=== PATIENT | female | born 1980 | race Caucasian/White ===

== ENCOUNTER 2020-02-12 06:32 | Day surgery (SDC) | payer BC ==
[~2020-02-12 06:32] MED LIST: Lactated Ringers 1,000 ML IV SCH; Lidocaine 1% 4 ML ONE; Lidocaine 1%/Sod Bicarbonate in NS 8.4% 1 ML Syringe IDERM PRN; Midazolam 1 MG/ML 2 ML SDV ONE; Propofol 200 MG/20 ML SDV ONE; Sodium Chloride 0.9% 10 ML Syringe FLUSH PRN; ceFAZolin 1 GM Vial ONE; fentaNYL 100 MCG/2 ML SDV ONE
[2020-02-12] MEDS ORDERED: Bupivacaine 0.25% 10 ML SDV ONE (06:37)
--- NOTE | 2020-02-12 06:49 | PCM.PREANE ---
Preanesthetic Assessment - Procedure Proposed Procedure: right elbow nodule excisiojn - Anesthesia/Transfusion/Family Hx Anesthesia History: Prior Anesthesia Without Reaction Family History of Anesthesia Reaction: No Transfusion History: No Prior Transfusion(s) - Review of Systems General: No Symptoms Pulmonary: No Symptoms Cardiovascular: No Symptoms Gastrointestinal: No Symptoms Neurological: No Symptoms Other: Reports: None - Physical Assessment NPO Status Date: 02/11/20 NPO Status Time: 22:00 Vital Signs: 124/84 85 98% 98.0 16 Height: 5 ft 6 in Weight: 88.4 kg ASA Class: 2 Mental Status: Alert & Oriented x3 Airway Class: Mallampati = 1 Dentition: Reports: Normal Dentition Thyro-Mental Finger Breadths: 3 Mouth Opening Finger Breadths: 3 ROM/Head Extension: Full Lungs: Clear to Auscultation, Normal Respiratory Effort Cardiovascular: Regular Rate, Regular Rhythm - Lab Values: Laboratory Last Values COVID-19 PCR Not detected (NOT DETECT) 02/09/20 11:00 MRSA (PCR) Negative 02/04/20 13:22 - Allergies Allergies/Adverse Reactions: Allergies Allergy/AdvReac Type Severity Reaction Status Date / Time Sulfa (Sulfonamide Allergy Cannot Verified 02/11/20 13:53 Antibiotics) Remember - Blood Blood Available: No - Acknowledgements Anesthesia Type Planned: General Anesthesia, MAC Pt an Appropriate Candidate for the Planned Anesthesia: Yes Alternatives and Risks of Anesthesia Discussed w Pt/Guardian: Yes Pt/Guardian Understands and Agrees with Anesthesia Plan: Yes PreAnesthesia Questionnaire HEENT History: Reports: Other (See Below) Other HEENT History: pharyngitis Cardiovascular History: Reports: None Respiratory History: Reports: None Gastrointestinal History: Reports: None Genitourinary History: Reports: None [employer] INS[employer]OR History: Reports: None Musculoskeletal History: Reports: RA, Other (See Below) Other Musculoskeletal History: rheumatoid nodule of elbow, left ankle bone spur removal around 11 years of age Neurological History: Reports: None Psychiatric History: Reports: None Endocrine/Metabolic History: Reports: None Hematologic History: Reports: None Immunologic History: Reports: None Oncologic (Cancer) History: Reports: None Dermatologic History: Reports: Other (See Below) Other Dermatologic History: skin disorder - Past Surgical History Head Surgeries/Procedures: Reports: None HEENT Surgical History: Reports: Cataract Surgery Cardiovascular Surgical History: Reports: None Respiratory Surgical History: Reports: None GI Surgical History: Reports: None Female Surgical History: Reports: None Male Surgical History: Reports: None Endocrine Surgical History: Reports: None Neurological Surgical History: Reports: None Musculoskeletal Surgical History: Reports: Carpal Tunnel Oncologic Surgical History: Reports: None Dermatological Surgical History: Reports: None - SUBSTANCE USE Smoking Status *Q: Never Smoker Recreational Drug Use History: No - HOME MEDS Home Medications: Home Meds Cholecalciferol (Vitamin D3) [Vitamin D3] 8,000 unit PO DAILY 02/12/19 [History] Loratadine [Claritin] 10 mg PO DAILY 02/11/20 [History] Naproxen [Naprosyn] 500 mg PO BID PRN 02/11/20 [History] Turmeric 1,200 mg PO DAILY 02/11/20 [History] - CURRENT (IN HOUSE) MEDS Current Meds: Current Medications Lactated Ringer's (Ringers, Lactated) 1,000 mls @ 125 mls/hr IV ASDIRECTED STAN Stop: 02/12/20 23:00 Lidocaine/Sodium Bicarbonate (Buffered Lidocaine 1% In Ns 8.4%) 0.25 ml IDERM ONETIME PRN PRN Reason: Prior to IV Start Stop: 02/12/20 23:00 Sodium Chloride (Saline Flush) 10 ml FLUSH ASDIRECTED PRN PRN Reason: Keep Vein Open Stop: 02/12/20 23:00 Discontinued Medications Bupivacaine HCl (Sensorcaine-Mpf 0.25%) Confirm Administered Dose 30 ml .ROUTE .STK-MED ONE Stop: 02/12/20 06:38 Cefazolin Sodium (Ancef) Confirm Administered Dose 2 gm .ROUTE .STK-MED ONE Stop: 02/12/20 06:21 Fentanyl (Sublimaze) Confirm Administered Dose 100 mcg .ROUTE .STK-MED ONE Stop: 02/12/20 06:21 Lidocaine HCl (Xylocaine-Mpf 1%) Confirm Administered Dose 4 mls @ as directed .ROUTE .STK-MED ONE Stop: 02/12/20 06:20 Midazolam HCl (Versed 1 Mg/Ml) Confirm Administered Dose 2 mg .ROUTE .STK-MED ONE Stop: 02/12/20 06:21 Propofol (Diprivan 20 Ml) Confirm Administered Dose 200 mg .ROUTE .STK-MED ONE Stop: 02/12/20 06:20
[2020-02-12] MEDS ORDERED: fentaNYL 100 MCG/2 ML SDV IVPUSH PRN (07:19)
[2020-02-12] MEDS ORDERED: HYDROmorphone 0.5 MG/0.5 ML Syringe IVPUSH PRN (07:19)
[2020-02-12] MEDS ORDERED: Ondansetron 4 MG/2 ML SDV IVPUSH PRN (07:19)
[2020-02-12] MEDS ORDERED: Ketorolac 30 MG/ML SDV ONE (07:29)
[2020-02-12] MEDS ORDERED: Ondansetron 4 MG/2 ML SDV ONE (07:29)
--- NOTE | 2020-02-12 07:53 | PCM.POSTAN ---
POST ANESTHESIA ASSESSMENT - MENTAL STATUS Mental Status: Alert, Oriented - VITAL SIGNS Vital Signs: Last Vital Signs Temp 98.0 F 02/12/20 06:35 Pulse 85 02/12/20 06:35 Resp 16 02/12/20 06:35 BP 124/84 02/12/20 06:35 Pulse Ox 98 02/12/20 06:35 0749 73 12 94% 97.8 117/73 - RESPIRATORY Respiratory Status: Respiratory Rate WNL, Airway Patent, O2 Saturation Stable, Supplemental Oxygen - CARDIOVASCULAR CV Status: Pulse Rate WNL, Blood Pressure Stable - GASTROINTESTINAL GI Status: No Symptoms - PAIN Pain Score: 0 - POST OP HYDRATION Hydration Status: Adequate & Stable
--- NOTE | 2020-02-12 09:54 | PCM48HPAN ---
Post Anesthesia Note - EVALUATION WITHIN 48HRS OF ANESTHETIC Vital Signs in Normal Range: Yes Patient Participated in Evaluation: Yes Respiratory Function Stable: Yes Airway Patent: Yes Cardiovascular Function Stable: Yes Hydration Status Stable: Yes Pain Control Satisfactory: Yes Nausea and Vomiting Control Satisfactory: Yes Mental Status Recovered: Yes Vital Signs: Last Vital Signs Temp 36.7 C 02/12/20 09:00 Pulse 61 02/12/20 09:00 Resp 16 02/12/20 09:00 BP 120/71 02/12/20 09:00 Pulse Ox 98 02/12/20 09:00
--- NOTE | 2020-02-12 10:04 | PCM.OPNOTE ---
- General Post-Op/Procedure Note Date of Surgery/Procedure: 02/12/20 Operative Procedure(s): excision of right elbow subcutaneous rheumtoid nodlues Pre Op Diagnosis: painful right elbow mass Post-Op Diagnosis: Same Anesthesia Technique: General LMA, Local Primary Surgeon: Rene Hubbard Anesthesia Provider: Maryam Kimball Trucking Manager: Jessica Cortes EBJuvencio in mLs: 5 Complications: None Condition: Good Free Text/Narrative:: Intake & Output 02/11/20 02/12/20 02/12/20 22:59 06:59 14:59 Intake Total 100 Balance 100
--- NOTE | 2020-02-18 09:08 | OR ---
DATE OF OPERATION: 02/12/2020 SURGEON: Rene Hubbard MD OPERATION PERFORMED: Excision of right elbow subcutaneous rheumatoid nodules. PREOPERATIVE DIAGNOSIS: Painful right elbow mass. POSTOPERATIVE DIAGNOSIS: Painful right elbow mass. ANESTHESIA: General LMA with local. ANESTHESIA PROVIDER: Maryam Kimball CRNA MULTIFOLD OPERATOR: Jessica Cortes LPN. ESTIMATED BLOOD LOSS: 5 mL. COMPLICATIONS: None. CONDITION: Stable. DESCRIPTION OF PROCEDURE: The patient was identified in the preoperative holding area. Proper site was marked and identified by surgeon. The patient was taken back to the operative theater, where after adequate anesthesia, the patient's right upper extremity had a nonsterile tourniquet applied and was sterilely prepped and draped in the usual sterile fashion. OR time-out was performed. The patient received 2 g of IV Ancef. At this time, right upper extremity was exsanguinated. Tourniquet was insufflated to 220 mmHg. Standard curvilinear incision was made over the olecranon and the olecranon bursa. This was taken down through the subcutaneous tissue. The subcutaneous rheumatoid nodules were then identified and all of them were resected. There was no more prominence of the rheumatoid nodules and no involvement of the joint line. Once the bursa and the nodules were removed, adequate saline was irrigated through the wound. 3-0 Vicryl was used subcutaneously, and yancy were used for closure of the skin. The patient had a sterile soft dressing applied and then was sent to the PACU in stable condition, and the masses were sent for pathology. MMODAL /[id number]
== END 2020-02-12 10:01 | disposition home or self-care (01) ==
LOC: JD.SDS 06:32
PROVIDERS: ATTEND Orthopaedic Surgery
DX: M06.321 Rheumatoid nodule, right elbow (principal); E55.9 Vitamin D deficiency, unspecified; Z11.59 Encounter for screening for other viral diseases; Z79.899 Other long term (current) drug therapy; Z88.2 Allergy status to sulfonamides
CPT/HCPCS: 24120; 87635; 87641; J0690; J1885; J2001; J2250; J2405; J2704; J3010; J3490; J7120; 00400; U0002